=== PATIENT | female | born 1970 | race African-American/Black ===

== ENCOUNTER → 2024-04-12 12:51 | Outpatient (REF) | payer OTHER, SELFPAY ==
[2024-04-13 11:15] LABS: Mumps Virus IgG Positive; Rubeola (Measles) IgG Positive; Varicella Zoster IgG (VZV) Positive
[2024-04-13 19:10] LABS: Rubella Positive
== END ==
LOC: REG 12:51
PROVIDERS: ATTENDING PHYSICIAN Nurse Practitioner Family
DX: Z23 Encounter for immunization (principal)
CPT/HCPCS: 36415; 86735; 86762; 86765; 86787